=== PATIENT | female | born 2000 | race Caucasian/White ===

== ENCOUNTER 2018-03-03 13:45 | Outpatient (CLI) | payer OTHER ==
--- NOTE | 2018-03-03 19:10 | MRI ---
LEFT KNEE MRI WITHOUT IV CONTRAST: Date: 03/03/18 HISTORY: 17-year-old female with history of internal derangement of the left knee, prior left knee surgery, kn ee pain 2 weeks ago playing soccer and collided with another player. TECHNIQUE: Multiplanar, multisequence MRI examination of the left knee is performed. FINDINGS: Status post left ACL repair changes are noted. The replaced ACL tendon is thickened and heterogeneous ly increased in signal, evidence for mucoid degeneration. There is an abnormal nodular focus of alter ed signal at the anterior distal ACL, this measures approximately 1.4 x 2.2 cm, consistent with a cyc lops lesion. There is evidence for a posterolateral tibial plateau fracture, nondisplaced, with assoc iated significant marrow edema. There is also a small area of contusion involving the posterior media l tibia near the posterior cruciate ligament insertion, as well as small medial and lateral femoral c ondyle areas of bone contusion. Medial and lateral menisci are intact. The posterior cruciate ligamen t is intact. Collateral ligament complexes appear intact. Quadriceps and patellar tendons and extenso r mechanism appear unremarkable. IMPRESSION: Nondisplaced fracture involving the posterolateral tibial plateau with considerable surrounding marro w edema. Some of this marrow edema extends across the intercondylar eminence into the central aspect and lateral aspect of the medial proximal tibia. There are also small bone contusions involving the l ateral femoral condyle and medial femoral condyles. Abnormal thickening and increased signal within t he replaced ACL tendon, it does appear to be intact but has the appearance of mucoid degeneration. Co rrelation with physical examination in regards to ACL sufficiency should be considered. Large area of focal arthrofibrosis anterior to the distal ACL tibial insertion, evidence for a cyclops lesion. POS: [facility]
== END 2018-03-03 13:46 | disposition home or self-care (01) ==
LOC: TBSIIMAG 13:45
PROVIDERS: ATTEND Orthopaedic Surgery
DX: M23.92 Unspecified internal derangement of left knee (principal); S82.145A Nondisplaced bicondylar fracture of left tibia, initial encounter for closed fracture; R60.0 Localized edema; S80.02XA Contusion of left knee, initial encounter